=== PATIENT | male | born 1995 | race Caucasian/White ===

== ENCOUNTER 2021-11-08 08:32 | Emergency (ER) | payer OTHER, SELFPAY ==
--- NOTE | 2021-11-08 08:37 | ED.URI ---
HPI - URI/Sore Throat General Chief Complaint: Upper Respiratory Infection Stated Complaint: sore throat Time Seen by Provider: 11/08/21 08:37 Source: patient and RN notes reviewed History of Present Illness HPI Narrative: Patient is a 25-year-old male who presents the urgent care with complaints of a sore throat and bilateral ear pain for 2 weeks. Patient states it seems to get better and then worse. Patient has been taking Tylenol/ibuprofen and [id number]-sshfxnv cold and flu medication for symptom relief. Patient has not been COVID vaccinated and denies of any recent exposures. Denies of any fever, chills, nausea or vomiting. No other acute complaints. No acute distress noted. Patient aware of the plan of care. Some parts of this dictation were generated by voice recognition software and may contain typographical and/or grammatical inaccuracies. Related Data Allergies Allergy/AdvReac Type Severity Reaction Status Date / Time cefprozil [From Cefzil] Allergy Unknown Verified 11/08/21 08:54 Review of Systems Review of Systems: CONSTITUTIONAL: Denies fever, chills, or sweats. EYES: Denies visual changes, redness, or discharge. ENT: Reports of sore throat, bilateral otalgia and mild congestion. CARDIOVASCULAR: Denies chest pain, palpitations, or edema. RESPIRATORY: Denies cough or dyspnea. GASTROINTESTINAL: Denies abdominal pain, nausea, vomiting, or diarrhea. GENITOURINARY: Denies dysuria or hematuria. SKIN: Denies rash or itching. MUSCULOSKELETAL: Denies back pain, joint pain, or myalgia. NEUROLOGIC: Denies headache, numbness, or weakness. All other systems reviewed are negative, except as documented in HPI. PMFSH Comments At the time of my signature, I reviewed and agree with the nursing past medical, surgical, social, and family history. There is no relevant family history pertinent to the patient complaint. Exam Narrative: GENERAL: This is a well-nourished, well-developed patient, in no apparent distress. HEAD: normocephalic, atraumatic. EYES: PERRL. Sclera clear/white. Vision is grossly intact. EARS: External ears normal, auditory canals clear and without drainage, bilateral erythemic/injected TMs with moderate effusions.. Hearing grossly intact. NOSE: External nose normal with no obvious nasal discharge, nares without redness, no rhinorrhea. THROAT: Mucous membranes moist. Mild bilateral tonsillar edema with bilateral exudate and moderate postnasal drainage. Moderate erythema noted to posterior oropharynx. NECK: Neck supple, non-tender without lymphadenopathy, masses or thyromegaly. CARDIOVASCULAR: Regular rate and rhythm without murmurs, gallops, or rubs. RESPIRATORY: Clear to auscultation. Breath sounds equal bilaterally. No wheezes, rales, or rhonchi. SKIN: warm, intact with no suspicious lesions or rash, good texture and turgor. NEURO: awake, alert, and oriented to person, place and time. There were no obvious focal neurologic abnormalities. EXTREMITIES: No clubbing, cyanosis, or edema. Course Course Level of Care: Express Care Visit Vital Signs Vital signs: Vital Signs Temperature 98.1 F 11/08/21 08:50 Pulse Rate 66 11/08/21 08:50 Respiratory Rate 16 11/08/21 08:50 Blood Pressure 140/57 L 11/08/21 08:50 Pulse Oximetry 98 11/08/21 08:50 Temperature 98.1 F 11/08/21 08:50 Pulse Rate 66 11/08/21 08:50 Respiratory Rate 16 11/08/21 08:50 Blood Pressure 140/57 L 11/08/21 08:50 Pulse Oximetry 98 11/08/21 08:50 Reviewed MDM - URI/Sore Throat MDM Narrative Medical decision making narrative: Educated the patient on strep culture however there will be no phone call on results considering you will be treated to cover strep and bilateral ear infection. Advised the patient not to use anything in the ear such as Q-tips, peroxide, vnzl-blb-hyooien drops or water. Complete the oral antibiotic regimen as prescribed. Use an llok-yiy-rkwliqy antihistamine such as Benadryl in conjunction with
[2021-11-08 08:50] VITALS: BP 140/57; PULSE 66; RESP 16; TEMP 36.7; O2SAT 98
== END 2021-11-08 09:11 | disposition home or self-care (01) ==
PROVIDERS: Emergency Provider Nurse Practitioner Family
DX: J02.9 Acute pharyngitis, unspecified (principal); H66.93 Otitis media, unspecified, bilateral
CPT/HCPCS: 87081; 99213; G0463